=== PATIENT | female | born 1975 | race Caucasian/White ===

== ENCOUNTER 2016-08-19 16:51 | Emergency (ER) | payer MEDICARE, OTHER ==
[2016-08-19] MEDS ORDERED: NALBUPHINE HCL 10 MG/ML AMP ONE (17:23)
[2016-08-19] MEDS ORDERED: ONDANSETRON 4 MG/2ML 2 ML VIAL ONE ×2 (17:23→17:33)
[2016-08-19 17:25] LABS: ABSOLUTE NEUTROPHIL COUNT 3.7 K/mm3 (1.8-7.7); BASO # 0.1 K/mm3 (0.0-0.2); BASO % 0.7 % (0.2-1.0); EOS % 0.4 % (0.9-2.9); HEMATOCRIT 38.8 % (37.0-47.0); IMM NEUT% 0.1 % (0-1); LYMPH # 2.3 (1.0-4.8); LYMPH % 33.8 % (15-45); MEAN CELL VOLUME 82.4 fl (81.0-99.0); MEAN CORPUSCULAR HEMOGLOBIN 25.5 pg (27.0-31.0); MEAN CORPUSCULAR HGB CONC 30.9 g/dl (33.0-37.0); MEAN PLATELET VOLUME 11.9 fl (7.4-10.4); MONO # 0.7 (0.0-0.8); MONO % 9.8 % (4-12); NEUT % 55.2 % (43-75); PLATELET COUNT 222 K/mm3 (130-400); RED CELL DISTRIBUTION WIDTH 21.2 % (11.5-14.5)
--- NOTE | 2016-08-19 17:54 | US ---
ABDOMINAL-LIMITED COMPARISON: CT abdomen and pelvis 08/04/2016 HISTORY: Postprandial abdominal pain. FINDINGS: Gall bladder: Normal, length 8 cm in wall thickness 2 mm. No stones or sludge. Negative Lindsay sign. Common hepatic duct: 1.3 mm. Common bile duct: 3.8 mm. IMPRESSION: 1. Normal study. The report was sent to the emergency department electronic medical record system 08/19/2016 at 17:55
[2016-08-19 18:16] LABS: ALB/GLOB RATIO 1.3 (>1.0); ALBUMIN 4.4 gm/dL (3.5-5.7); CALCIUM 9.5 mg/dL (8.6-10.3)
[2016-08-19 18:58] LABS: PH,URINE 6.5 (5.0-8.0); URINE BILIRUBIN NEGATIVE (NEGATIVE); URINE BLOOD TRACE (NEGATIVE); URINE GLUCOSE (UA) NEGATIVE (NEGATIVE); URINE LEUKOCYTE ESTERASE TRACE (NEGATIVE); URINE NITRITE NEGATIVE (NEGATIVE); URINE PROTEIN TRACE (NEGATIVE); URINE UROBILINOGEN NORMAL (0-1 mg/dl)
[2016-08-19 18:59] LABS: URINE APPEARANCE CLEAR; URINE COLOR DARK YELLOW
[2016-08-19 19:00] LABS: HCG,QUALITATIVE URINE NEGATIVE
[2016-08-19 19:09] LABS: URINE BACTERIA RARE; URINE MUCUS 3+; URINE RBC 0-2 /hpf
== END 2016-08-19 19:15 | disposition home or self-care (01) ==
LOC: ED 16:51
DX: R10.9 Unspecified abdominal pain (principal); R11.2 Nausea with vomiting, unspecified